=== PATIENT | female | born 1955 | race Caucasian/White ===

== ENCOUNTER 2023-10-08 15:43 | Inpatient (IN) | payer OTHER, SELFPAY ==
[2023-10-08] VITALS (9 sets, daily range): BP systolic 104–145; BP diastolic 78–88; PULSE 77–81; RESP 18; TEMP 36.6–36.7; O2SAT 96–98; BMI 21.3; BMI 26.9
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
--- NOTE | 2023-10-08 16:32 | ED.NURSE ---
Patient reports allergy to paper scrubs. She accepts paper pants and will wear her T-shirt without a bra for safety.
[2023-10-08] MEDS: ONDANSETRON ODT 4 MG TAB PO (16:38)
[2023-10-08 16:39] LABS: Basophils Absolute Auto 0.04 K/uL (0.00-0.30); Basophils Percent Auto 0.5 % (0.0-3.0); Eosinophils Absolute Auto 0.11 K/uL (0.00-0.50); Eosinophils Percent Auto 1.5 % (0.0-7.0); Hematocrit 48.6 % (33.0-51.0); Hemoglobin* 15.6 gm/dL (12.0-16.0); Immature Granulocytes Abs Auto 0.02 K/uL (0.00-0.30); Immature Granulocytes Pct Auto 0.3 %; Lymphocytes Percent Auto 14.3 % (20-44); Mean Corpuscular HGB Conc 32 gm/dL (32-36); Mean Corpuscular Hemoglobin 28 pg (26-34); Mean Corpuscular Volume 86 fL (80-100); Monocytes Percent Auto 11.1 % (0.0-11.0); Neutrophils Percent Auto 72.3 % (42.0-72.0); Platelet Count* 251 K/uL (140-440); RDW Coefficient of Variation % 12.3 % (11.5-15.5); Red Blood Count 5.65 m/uL (4.00-5.20); White Blood Count* 7.55 K/uL (4.50-11.00)
[2023-10-08 16:46] LABS: Slide Review Reflex No
[2023-10-08 16:54] LABS: Chloride* 103 mmol/L (96-114); Sodium* 139 mmol/L (135-149)
[2023-10-08 16:55] LABS: Potassium* 4.3 mmol/L (3.6-5.1)
[2023-10-08 16:57] LABS: Alanine Aminotransferase* 40 U/L (4-35); Alkaline Phosphatase* 65 U/L (40-150); Anion Gap 6 mEq/L (7-15); Aspartate Amino Transferase* 31 U/L (12-35); Bilirubin Total* 0.5 mg/dL (0.1-1.5); Blood Urea Nitrogen* 15 mg/dL (7-30); Carbon Dioxide* 30 mmol/L (20-32); Creatinine* 0.7 mg/dL (0.5-1.5); Est. Creatinine Clearance* 55.48; Estimated Glomerular Filt Rate 95 ml/min; Glucose* 101 mg/dL (60-115); Total Protein* 7.9 g/dL (6.0-8.3)
[2023-10-08 16:58] LABS: Calcium* 9.5 mg/dL (8.4-10.6)
[2023-10-08 16:59] LABS: Acetaminophen* < 10.0 ug/mL (10.0-30.0)
[2023-10-08 17:13] LABS: Ethanol* < 0.01 % (0.01-0.03); Salicylate* < 1.0 mg/dL (1.0-10)
[2023-10-08 17:21] LABS: PCR FLU A Negative PCR FLU A (Negative); PCR FLU B Negative PCR FLU B (Negative); PCR RSV Negative PCR RSV (Negative); SARS PCR* POSITIVE SARS-CoV-2 (Negative)
[2023-10-08] MEDS: 0.9 % SODIUM CHLORIDE 1000 ml 1,000 ML 500 ML IV (18:21)
[2023-10-08] MEDS: ONDANSETRON 2 MG/ML inj 4 MG IVP (18:22)
[2023-10-08] MEDS: KETOROLAC 15 MG/ML inj IVP (18:22)
--- NOTE | 2023-10-08 18:22 | ED.NURSE ---
Spoke with patient's sister to obtain background and explain plan for admission due to Covid. Patient's sister is in agreement, in very involved with her sister's care but is feeling overwhelmed over past several months due to increased needs in her sister and progression of depressive symptoms.
[2023-10-08] MEDS: SODIUM CHLORIDE 0.9 % (FLUSH) 10 ML SYRINGE 5 ML IVF (20:55)
[2023-10-08] MEDS: PANTOPRAZOLE SODIUM 40 MG INJ IVP (20:56)
[2023-10-08] MEDS: FAMOTIDINE 20 MG TABLET PO (20:56)
[2023-10-08] MEDS: PROCHLORPERAZINE 10 MG TABLET 5 MG PO (20:56)
[2023-10-08] MEDS: 0.9 % SODIUM CHLORIDE 1000 ml 1,000 ML 125 ML IV (20:58)
[2023-10-08] MEDS: clonazePAM 0.5 MG TABLET PO (21:16)
[2023-10-08] MEDS: TRAZODONE HCL 50 MG TABLET PO (21:16)
[2023-10-08] MEDS: MELATONIN 3 MG TABLET 6 MG PO (21:17)
[2023-10-08] MEDS: hydrOXYzine pamoate 25 MG CAPSULE 50 MG PO (21:17)
--- NOTE | 2023-10-08 21:29 | PM.IMHP1 ---
Hospitalist- H&P: HPI History of Present Illness Date Seen: 10/08/23 Chief complaint: Mental health Narrative: Danna Rojas is a 68 year old woman presents for assessment of his suicidal ideations in conjunction with nausea, diarrhea, decreased oral intake, with suspicions of possible opioid withdrawal. Had a video consultation with her [facility] psychiatrist yesterday about the same. Was advised to present to hospital with psychiatric support regarding the same yesterday. Presented to the [facility] Emergency Department in [facility] yesterday for assessment of the same. By the time she arrived there she indicated she was not having suicidal thoughts or ideations. Was more concerned about the possibility of having opioid withdrawals. Unable to take her oxycodone and keep it down. Was offered inpatient bed for assessment and treatment but she refused. Went back to her home with her sister. Has thoughts and ideations about drowning herself in the [place] peer does not have intention to do so but the thoughts keep coming back to her. Make statements during my interview along the lines of ?it is not worth it anymore.? Patient tells me she thinks that she tapered off her opioids to quickly. She is hoping to get reaction oxycodone to help with her opioid withdrawal symptoms. She thinks she becomes more anxious with opioid withdrawal symptoms and that is when she has thoughts of killing herself. States her appetite has been decreased. When she tries to eat or drink she says she has loose stools. Does have history of irritable bowel syndrome. Was in inpatient at [facility] unit from 08/23/2023 through 09/21/2023 with depression and suicidal ideations in the context of multiple medication adjustments. During that time she received a total of 5 treatments of ECT. Had significant cognitive decline afterward culminating in decision to recommend no future ECT treatments. Was on a 72 hour hold starting 09/16/23 due to unsafe discharge planning but did not require seclusion or restraints. During this to same hospitalization underwent significant reduction in oxycodone dosing. Had been on oxycodone 80 mg per day and at time of discharge was down to oxycodone 15 mg twice daily +10 mg once daily if needed. Prior to that hospitalization patient had filled a prescription of oxycodone 40 mg tabs, 120 tabs, on 08/16/23 and the bottle was empty by the time she was admitted to the hospital on 08/23/2023. Patient denies misuse of the medicine. Patient denies selling her medicine. Family suspect patient could have done both, sell the medicine and possibly overuse it. Reportedly her pain clinic was noted of this. Review of Systems Status of ROS: Reports: 10 or more systems reviewed and unremarkable except as noted in History and below Narrative: Main symptoms are nausea, postprandial loose stools. Acknowledges history of irritable bowel syndrome. States has been unable to keep her oxycodone down in particular. She thinks that not being able to take her oxycodone is causing her to have more symptoms. She believes these are opioid withdrawal symptoms. Denies fevers, rigors, diaphoresis. Denies dyspnea at rest, dyspnea with exertion, paroxysmal nocturnal dyspnea, orthopnea. Denies chest heaviness, pressure, tightness, or pain. Denies orthostasis. No recent trauma or injury. No focal motor neurologic deficits. Denies use of any non-prescription medications including tobacco, alcohol, methamphetamine, cocaine, etc.. [facility] Medical History (Updated 10/08/23 @ 22:33 by Mehul Medrano MD) Endometriosis ?N80.9 - Endometriosis, unspecified (ICD-10) Anxiety disorder ?F41.9 - Anxiety disorder, unspecified (ICD-10) Tobacco use disorder, moderate, in sustained remission ?F17.201 - Nicotine dependence, unspecified, in remission (ICD-10) Suicidal ideation ?R45.851 - Suicidal ideations (ICD-10) Methamphetamine use disorder, mild, in sustained remission ?F15.11 - Other stimulant abuse, in remission (ICD-10) Cannabis use disorder in remission ?F12.91 - Cannabis use, unspecified, in remission (ICD-10) Post traumatic stress disorder (PTSD) ?F43.10 - Post-traumatic stress disorder, unspecified (ICD-10) Chronic pain ?G89.29 - Other chronic pain (ICD-10) Opioid use disorder ?F11.90 - Opioid use, unspecified, uncomplicated (ICD-10) Bipolar 2 disorder ?F31.81 - Bipolar II disorder (ICD-10) Surgical History (Updated 10/08/23 @ 21:51 by Mehul Medrano MD) Status post cholecystectomy ?Z90.49 - Acquired absence of other specified parts of digestive tract (ICD-10) S/P MOISES-BSO (total abdominal hysterectomy and bilateral salpingo-oophorectomy) ?Z90.710 - Acquired absence of both cervix and uterus (ICD-10) ?Z90.722 - Acquired absence of ovaries, bilateral (ICD-10) ?Z90.79 - Acquired absence of other genital organ(s) (ICD-10) Family History Sister Bipolar 2 disorder Depression Anxiety Mother Anxiety Depression Sister Suicide Social History Narrative: . 4 children who live in the area. Lives alone in [place], [place]. On disability since 2013. What is your current living situation?: I presently have a place to live Problems where you live: no known problems Problems where you live details: NA In the past 12 months, utilities in danger of being shut off: no In past 12 months, lack of transportation kept you from medical appts, meetings, work, or getting things needed for daily living: no In the past 12 mos, have been you worried that your food would run out before you had money to buy more?: never true In the past 12 mos, the food you bought just didn't last and you didn't have money to buy more?: never true Highest level of school completed/degree received: some college, no degree Smoking Status: Former smoker How often do you have a drink containing alcohol: never AUDIT-C Alcohol total score: 0 Non-prescribed substance use: denies use Caffeine: No How often does anyone, including family, friends and others, physically hurt you: never How often does anyone, including family, friends and others, insult or talk down to you: never How often does anyone, including family, friends and others, threaten you with harm: never How often does anyone, including family, friends and others, scream or curse at you: never service: No Meds Home Medications and Allergies Home Medications ?Medication ?Instructions ?Recorded ?Confirmed ?Type aripiprazole 2 mg tablet mg PO 10/08/23 History clonazepam 0.5 mg tablet mg PO 10/08/23 History clonidine HCl 0.1 mg tablet mg PO DAILY 10/08/23 History dicyclomine 10 mg capsule 10 mg PO Q6H PRN 10/08/23 10/08/23 History divalproex 250 mg tablet,extended 250 mg PO DAILY 10/08/23 10/08/23 History release 24 hr divalproex 500 mg tablet,extended 500 mg PO DAILY 10/08/23 10/08/23 History release 24 hr oxycodone 20 mg tablet 20 mg PO QID PRN 10/08/23 10/08/23 History vortioxetine 10 mg tablet 10 mg PO DAILY 10/08/23 10/08/23 History (Trintellix) Allergies Allergy/AdvReac Type Severity Reaction Status Date / Time No Known Drug Allergies Allergy Verified 10/08/23 15:50 Exam Narrative: Exam Narrative: I examined patient in the emergency department. No acute distress. Vision and hearing are adequate. Cranial nerves 3-12 grossly normal. Alert and oriented to self, place, time, situation. Appears anxious. Linear thought processes. No delusions or hallucinations. Denies wishing to be or homicidal thoughts. Does acknowledge intrusive suicidal thoughts when she feels hopeless. Judgment seems poor with decreased ability to rationally discuss her condition, treatment options, future plans, future goals. Conjugate gaze. Poor dentition. Oropharynx with dry buccal mucosa. No lesions. No head neck lymphadenopathy. Neck is supple. Midline trachea. Lungs are clear to auscultation without wheezing, rhonchi, or rales. Heart tones with regular rhythm, normal S1-S2, without murmur, gallop, or rub. Abdomen with active bowel sounds, soft, nontender. Extremities without edema. Moves all 4 extremities. No tremor, asterixis, or ataxia. Independent in transfer, station, and gait. Skin intact. No rashes. No jaundice. No cyanosis. No petechiae. Const: Vital Signs, click to edit/add: Vital Signs - 24 hr 10/08/23 15:46 10/08/23 20:06 10/08/23 20:21 Temperature 98.0 F 98.0 F 98.0 F Pulse Rate [Left R adial] Pulse Rate [Right Pulse Oximeter] 81 79 79 Respiratory Rate 18 18 18 Blood Pressure [Ri ght Arm] Blood Pressure [Ri ght Upper Arm] 144/82 H 135/78 135/78 Pulse Oximetry 96 96 Oxygen Delivery Me thod Room Air Room Air 10/08/23 20:39 10/08/23 20:41 Temperature 97.8 F 97.8 F Pulse Rate [Left R adial] 77 77 Pulse Rate [Right Pulse Oximeter] Respiratory Rate 18 18 Blood Pressure [Ri ght Arm] 104/88 104/88 Blood Pressure [Ri ght Upper Arm] Pulse Oximetry 98 98 Oxygen Delivery Me thod Room Air Room Air Hospitalist - H&P: Result Labs Labs: Short CBC 10/08/23 Range/Units 16:34 WBC 7.55 (4.50-11.00) K/uL Hgb 15.6 (12.0-16.0) gm/dL Hct 48.6 (33.0-51.0) % Plt Count 251 (140-440) K/uL BMP 10/08/23 16:34 Sodium 139 Potassium 4.3 Chloride 103 Carbon Dioxide 30 BUN 15 Creatinine 0.7 Glucose 101 Calcium 9.5 Liver Function 10/08/23 Range/Units 16:34 Total Bilirubin 0.5 (0.1-1.5) mg/dL AST 31 (12-35) U/L ALT 40 H (4-35) U/L Alkaline Phosphatase 65 (40-150) U/L Albumin 5.0 (3.3-5.0) g/dL Assessment and Plan Assessment and plan (1) Suicidal ideation: Problem comment: - 1 attempt 6 years ago by hanging - h/o self cutting as a teenager - 10/08/2023 intermittent intrusive suicidal thoughts when feels hopeless - suicidal precautions. At this time she is potentially holdable if she tries to leave the hospital against medical advice. Other hospitals were contacted and will not accept her until she is medically stable, if she would still potentially require inpatient treatment. They indicate she needs to be able to tolerate oral intake, the COVID needs to be addressed, the diarrhea needs to be addressed. Status: Acute (2) Depression: Problem comment: - post-, 40 years old - ECT x 5 treatments between 08/25/23-09/15/23 at [place] - with some memory loss therefore no longer a candidate - ECT about 6 years ago in association with attempted suicide - restart same medications she was prescribed at time of discharge from [facility] 1 week ago Status: Acute (3) Bipolar 2 disorder: Status: Acute (4) Opioid use disorder: Problem comment: - Dr. Arcos, Pain management, [facility] - 10/08/2023 patient concerned about possible opioid withdrawal contributing to her loose stools and nausea - reinstitute schedule oxycodone at 15 mg p.o. b.i.d. in 10 mg q.d. p.r.n. as she was prescribed at time of discharge from [facility] at [facility] unit 1 week ago Status: Acute (5) Nausea & vomiting: Problem comment: - etiology not yet determined. Consider opioid withdrawal, COVID-19, peptic ulcer disease, Helicobacter pylori duodenitis, etc.. - treat with antiemetics as needed - PPI empirically - check Helicobacter pylori antigen - IV fluids, antiemetics Status: Acute (6) Diarrhea due to COVID-19: Problem comment: - remdesivir IV x3 days - check urine toxicology - reinstitute her opioids - check stool for C diff Status: Acute (7) COVID-19: Problem comment: - Dx 10/08/23 - Started Remdesivir IV x 3 days on 10/08/23 Status: Acute Plan 1. Admit to observation. 2. Treatment plan as specified above. 3. Consider transfer if appropriate and medically stable. 4. Patient agreeable to above stated plans and recommendations. Total Time Spent Total Time Spent: 70 minutes
[2023-10-08 21:48] LABS: Appearance Urine Clear (Clear); Bilirubin Urine Negative (Negative); Blood Urine Trace-intact (Negative); Color Urine Yellow (Yellow); Glucose Urine Negative (Negative); Ketones Urine 1+ (Negative); Leukocyte Esterase Urine 1+ (Negative); Nitrite Urine Negative (Negative); Protein Urine Negative (Negative); Urobilinogen Urine 0.2 (0.2-1.0); pH Urine 6.5 (5.0-8.5)
[2023-10-08 21:54] LABS: Amphetamine Screen Urine Negative (Negative); Bacteria Urine Few; Barbiturate Screen Urine Negative (Negative); Benzodiazepines Screen Urine Negative (Negative); Cannabinoid Screen Urine Negative (Negative); Cocaine Screen Urine Negative (Negative); Methadone Screen Urine Negative (Negative); Methamphetamines Screen Urine Negative (Negative); Opiate Screen Urine Negative (Negative); Oxycodone Screen Urine Negative (Negative); Phencyclidine Screen Urine Negative (Negative); RBC Urine 0-2 (0-2); Squamous Epithelial Cell Urine Many (None-Few); Tricyclic Antidepressant Urine Negative (Negative)
[2023-10-08] MEDS: OXYCODONE 5 MG TABLET 10 MG PO (22:15)
[2023-10-09] VITALS (10 sets, daily range): BP systolic 129–168; BP diastolic 72–93; PULSE 65–108; RESP 12–20; TEMP 36.8–37.8; O2SAT 95–98
--- NOTE | 2023-10-09 04:35 | PC.NURSE ---
Pt was very anxious upon admission. Once Meds were given she calmed down and went to sleep. Pt is Covid+. No cough. On RA. Afebrile. Pt up IND in room. States now that she is no longer Nauseated. No BM. VS unremarkable. Chronic pain to Neck rated 9/10. Suicide precautions in place. Pt RN 1:1 this night.
[2023-10-09 06:17] LABS: HCO3 VBG 30 mmol/L (21-28); Lactate* 1.1 mmol/L (0.5-1.9); PCO2 VBG 56 mmHG (40-50); PO2 VBG < 30.1 mmHG (25-47); pH VBG 7.335 (7.32-7.43)
[2023-10-09 06:34] LABS: Hematocrit 43.2 % (33.0-51.0); Hemoglobin* 13.6 gm/dL (12.0-16.0); Mean Corpuscular HGB Conc 32 gm/dL (32-36); Mean Corpuscular Hemoglobin 28 pg (26-34); Mean Corpuscular Volume 89 fL (80-100); Platelet Count* 199 K/uL (140-440); Red Blood Count 4.88 m/uL (4.00-5.20); White Blood Count* 4.52 K/uL (4.50-11.00)
[2023-10-09 06:38] LABS: Slide Review Reflex No
[2023-10-09 06:58] LABS: Albumin* 3.7 g/dL (3.3-5.0); Chloride* 108 mmol/L (96-114); Sodium* 141 mmol/L (135-149)
[2023-10-09 07:00] LABS: Anion Gap 5 mEq/L (7-15); Bilirubin Total* 0.2 mg/dL (0.1-1.5); Carbon Dioxide* 28 mmol/L (20-32); Creatinine* 0.7 mg/dL (0.5-1.5); Est. Creatinine Clearance* 39.75; Estimated Glomerular Filt Rate 95 ml/min
[2023-10-09 07:01] LABS: Alanine Aminotransferase* 28 U/L (4-35); Alkaline Phosphatase* 52 U/L (40-150); Aspartate Amino Transferase* 24 U/L (12-35); Blood Urea Nitrogen* 16 mg/dL (7-30); Glucose* 88 mg/dL (60-115); Phosphorus* 4.1 mg/dL (2.5-4.5)
[2023-10-09 07:02] LABS: Calcium* 8.4 mg/dL (8.4-10.6)
[2023-10-09 07:25] LABS: Thyroid Stimulating Hormone* 0.701 uIU/mL (0.270-4.20)
[2023-10-09] MEDS: DIVALPROEX SODIUM ER TAB 250 MG 500 MG PO (09:50)
[2023-10-09] MEDS: FAMOTIDINE 20 MG TABLET PO ×2 (09:50→20:18)
[2023-10-09] MEDS: SUCRALFATE 1 GM TABLET PO ×4 (09:51→20:19)
[2023-10-09] MEDS: OXYCODONE 5 MG TABLET 15 MG PO ×2 (09:51→20:17)
[2023-10-09] MEDS: SODIUM CHLORIDE 0.9 % (FLUSH) 10 ML SYRINGE 5 ML IVF ×2 (09:53→20:15)
--- NOTE | 2023-10-09 12:57 | P.IMPN_ITS ---
Progress Note: A&P Assessment and plan (1) COVID-19: Problem details: - Dx 10/08/23 - Started Remdesivir IV x 3 days on 10/08/23 Status: Acute (2) Diarrhea due to COVID-19: Problem details: - remdesivir IV x3 days - check urine toxicology - reinstitute her opioids - check stool for C diff->pending Status: Acute (3) Nausea & vomiting: Problem details: - etiology not yet determined. Consider opioid withdrawal, COVID-19, peptic ulcer disease, Helicobacter pylori duodenitis, etc.. - treat with antiemetics as needed - PPI empirically - check Helicobacter pylori antigen - IV fluids, antiemetics 10/08: Possible self induced vomiting per nursing reports?? Status: Acute (4) Opioid use disorder: Problem details: - Dr. Arcos, Pain management, [place] - 10/08/2023 patient concerned about possible opioid withdrawal contributing to her loose stools and nausea - reinstitute schedule oxycodone at 15 mg p.o. b.i.d. in 10 mg q.d. p.r.n. as she was prescribed at time of discharge from [facility] [place] unit 1 week ago Status: Acute (5) Bipolar 2 disorder: Status: Acute (6) Depression: Problem details: - post-, 40 years old - ECT x 5 treatments between 08/25/23-09/15/23 at [place] - with some memory loss therefore no longer a candidate - ECT about 6 years ago in association with attempted suicide - restart same medications she was prescribed at time of discharge from [facility] 1 week ago Status: Acute (7) Suicidal ideation: Problem details: - 1 attempt 6 years ago by hanging - h/o self cutting as a teenager - 10/08/2023 intermittent intrusive suicidal thoughts when feels hopeless - suicidal precautions. At this time she is potentially holdable if she tries to leave the hospital against medical advice. Other hospitals were contacted and will not accept her until she is medically stable, if she would still potentially require inpatient treatment. They indicate she needs to be able to tolerate oral intake, the COVID needs to be addressed, the diarrhea needs to be addressed. 10/08-Discussed with nursing staff continue sitter and suicide precautions; if patient attempts to leave AMA will need to fill out 72 hour medical hold Status: Acute Subjective Date Seen: 10/09/23 Interval history: patient has not had BM yet this morning no vomiting this AM per RN reports concern patient possibly may self inducing vomiting when asked about suicidal ideation the patient would not give a definitive response yes or no she states she just woke up and hasnt had enough time to think about potential self harm Exam Narrative: Exam Narrative: Gen: no acute distress HEENT: NCAT EOMI mmm Neck: Supple CV: RRR normal s1 s2 Lungs: CTAB Abd: Soft,nt, nd Neuro: Alert, oriented, CN grossly intact; nonfocal screening?exam Psych: poor insight MSK: age appropriate muscle mass Skin; Warm, dry no rash on face Const: Vital Signs, click to edit/add: Vital Signs - 24 hr 10/08/23 15:46 10/08/23 20:06 10/08/23 20:21 Temperature 98.0 F 98.0 F 98.0 F Pulse Rate [Left R adial] Pulse Rate [Right Pulse Oximeter] 81 79 79 Pulse Rate [orthos tatic lying] Pulse Rate [orthos tatic sitting Righ t] Pulse Rate [orthos tatic standing Rig ht Radial] Respiratory Rate 18 18 18 Blood Pressure [Ri ght Arm] Blood Pressure [Ri ght Upper Arm] 144/82 H 135/78 135/78 Blood Pressure [or thostatic lying] Blood Pressure [or thostatic sitting] Blood Pressure [or thostatic standing ] Pulse Oximetry 96 96 Oxygen Delivery Me thod Room Air Room Air Oxygen Flow Rate 10/08/23 20:39 10/08/23 20:41 10/08/23 21:30 Temperature 97.8 F 97.8 F Pulse Rate [Left R adial] 77 77 Pulse Rate [Right Pulse Oximeter] Pulse Rate [orthos tatic lying] Pulse Rate [orthos tatic sitting Righ t] Pulse Rate [orthos tatic standing Rig ht Radial] Respiratory Rate 18 18 18 Blood Pressure [Ri ght Arm] 104/88 104/88 Blood Pressure [Ri ght Upper Arm] Blood Pressure [or thostatic lying] Blood Pressure [or thostatic sitting] Blood Pressure [or thostatic standing ] Pulse Oximetry 98 98 98 Oxygen Delivery Me thod Room Air Room Air Room Air Oxygen Flow Rate 10/08/23 22:26 10/08/23 22:32 10/08/23 22:33 Temperature 98 F Pulse Rate [Left R adial] 77 77 Pulse Rate [Right Pulse Oximeter] Pulse Rate [orthos tatic lying] Pulse Rate [orthos tatic sitting Righ t] Pulse Rate [orthos tatic standing Rig ht Radial] Respiratory Rate 18 18 18 Blood Pressure [Ri ght Arm] 145/79 H Blood Pressure [Ri ght Upper Arm] Blood Pressure [or thostatic lying] Blood Pressure [or thostatic sitting] Blood Pressure [or thostatic standing ] Pulse Oximetry 96 96 Oxygen Delivery Me thod Room Air Room Air Oxygen Flow Rate 0 10/09/23 03:31 10/09/23 06:17 10/09/23 10:00 Temperature 98.4 F 99.7 F H Pulse Rate [Left R adial] 65 108 H Pulse Rate [Right Pulse Oximeter] Pulse Rate [orthos tatic lying] 74 Pulse Rate [orthos tatic sitting Righ t] 79 Pulse Rate [orthos tatic standing Rig ht Radial] 83 Respiratory Rate 16 14 Blood Pressure [Ri ght Arm] 129/72 133/86 Blood Pressure [Ri ght Upper Arm] Blood Pressure [or thostatic lying] 144/80 H Blood Pressure [or thostatic sitting] 159/93 H Blood Pressure [or thostatic standing ] 163/87 H Pulse Oximetry 95 95 Oxygen Delivery Me thod Room Air Room Air Oxygen Flow Rate 10/09/23 10:07 10/09/23 10:07 10/09/23 11:57 Temperature 98.3 F Pulse Rate [Left R adial] 108 H 91 Pulse Rate [Right Pulse Oximeter] Pulse Rate [orthos tatic lying] Pulse Rate [orthos tatic sitting Righ t] Pulse Rate [orthos tatic standing Rig ht Radial] Respiratory Rate 14 14 12 Blood Pressure [Ri ght Arm] 135/79 Blood Pressure [Ri ght Upper Arm] Blood Pressure [or thostatic lying] Blood Pressure [or thostatic sitting] Blood Pressure [or thostatic standing ] Pulse Oximetry 95 98 Oxygen Delivery Me thod Room Air Room Air Oxygen Flow Rate Labs Labs: Laboratory Results - last 24 hr 10/08/23 10/08/23 10/08/23 16:21 16:34 21:35 WBC 7.55 RBC 5.65 H Hgb 15.6 Hct 48.6 MCV 86 MCH 28 MCHC 32 RDW Coeff of Adriano 12.3 Plt Count 251 Neut % (Auto) 72.3 H Lymph % (Auto) 14.3 L [place] % (Auto) 11.1 H Eos % (Auto) 1.5 Baso % (Auto) 0.5 Neut # (Auto) 5.50 Lymph # (Auto) 1.10 [place] # (Auto) 0.80 Eos # (Auto) 0.11 Baso # (Auto) 0.04 Abs Immat Gran (auto) 0.02 Imm/Tot Granulo (auto) 0.3 VBG pH VBG pCO2 VBG pO2 VBG HCO3 Sodium 139 Potassium 4.3 Chloride 103 Carbon Dioxide 30 Anion Gap 6 L BUN 15 Creatinine 0.7 Estimated Creat Clear 55.48 Estimated GFR 95 Glucose 101 Lactate Calcium 9.5 Phosphorus Magnesium Total Bilirubin 0.5 AST 31 ALT 40 H Alkaline Phosphatase 65 Total Protein 7.9 Albumin 5.0 TSH Urine Color Yellow Urine Appearance Clear Urine pH 6.5 Ur Specific Snyder 1.020 Urine Protein Negative Urine Glucose (UA) Negative Urine Ketones 1+ A Urine Blood Trace-intact A Urine Nitrite Negative Urine Bilirubin Negative Urine Urobilinogen 0.2 Ur Leukocyte Esterase 1+ A Urine RBC 0-2 Urine WBC 10-25 A Ur Squamous Epith Cells Many A Urine Bacteria Few A Salicylates < 1.0 L Urine Opiates Screen Negative Ur Oxycodone Screen Negative Urine Methadone Screen Negative Acetaminophen < 10.0 L Ur Barbiturates Screen Negative U Tricyclic Antidepress Negative Ur Phencyclidine Scrn Negative Ur Amphetamines Screen Negative U Methamphetamines Scrn Negative U Benzodiazepines Scrn Negative Urine Cocaine Screen Negative U Marijuana (THC) Screen Negative Ur Drug Screen Comment See Note Ethyl Alcohol < 0.01 L SARS-CoV-2 (PCR) POSITIVE SARS-CoV-2 A Influenza Type A (PCR) Negative PCR FLU A Influenza Type B (PCR) Negative PCR FLU B RSV (PCR) Negative PCR RSV 10/09/23 06:05 WBC 4.52 RBC 4.88 Hgb 13.6 Hct 43.2 MCV 89 MCH 28 MCHC 32 RDW Coeff of Adriano Plt Count 199 Neut % (Auto) Lymph % (Auto) [place] % (Auto) Eos % (Auto) Baso % (Auto) Neut # (Auto) Lymph # (Auto) [place] # (Auto) Eos # (Auto) Baso # (Auto) Abs Immat Gran (auto) Imm/Tot Granulo (auto) VBG pH 7.335 VBG pCO2 56 H VBG pO2 < 30.1 VBG HCO3 30 H Sodium 141 Potassium 4.0 Chloride 108 Carbon Dioxide 28 Anion Gap 5 L BUN 16 Creatinine 0.7 Estimated Creat Clear 39.75 Estimated GFR 95 Glucose 88 Lactate 1.1 Calcium 8.4 Phosphorus 4.1 Magnesium 2.0 Total Bilirubin 0.2 AST 24 ALT 28 Alkaline Phosphatase 52 Total Protein 6.0 Albumin 3.7 TSH 0.701 Urine Color Urine Appearance Urine pH Ur Specific Snyder Urine Protein Urine Glucose (UA) Urine Ketones Urine Blood Urine Nitrite Urine Bilirubin Urine Urobilinogen Ur Leukocyte Esterase Urine RBC Urine WBC Ur Squamous Epith Cells Urine Bacteria Salicylates Urine Opiates Screen Ur Oxycodone Screen Urine Methadone Screen Acetaminophen Ur Barbiturates Screen U Tricyclic Antidepress Ur Phencyclidine Scrn Ur Amphetamines Screen U Methamphetamines Scrn U Benzodiazepines Scrn Urine Cocaine Screen U Marijuana (THC) Screen Ur Drug Screen Comment Ethyl Alcohol SARS-CoV-2 (PCR) Influenza Type A (PCR) Influenza Type B (PCR) RSV (PCR)
--- NOTE | 2023-10-09 18:28 | PC.NURSE ---
End of Shift: Patient pleasant and cooperative. Patient vitally stable, lungs clear, BS WNL, IV SL and intact. Patient independent in room. Patient rates back pain at most 8/10, only scheduled pain meds given, tylenol offered but patient reported she is allergic to tylenol. Patient urinating well. Patient has not vomited or had a BM this shift. Patient tolerating regular diet but does not have much of an appetite. Patient does report she is afraid to vomit therefore she is taking in food slow. Patient denies thoughts of harming herself but patient did express she does feel like she does not want to be around anymore. Patient became emotional and reported she is just sick and tired. Patient has been napping on and off today.
[2023-10-09] MEDS: MELATONIN 3 MG TABLET 6 MG PO (20:18)
[2023-10-09] MEDS: clonazePAM 0.5 MG TABLET PO (20:18)
[2023-10-09] MEDS: TRAZODONE HCL 50 MG TABLET PO (20:19)
[2023-10-10 02:55] VITALS: BP 152/86; PULSE 81; RESP 18; TEMP 37.5; O2SAT 92
--- NOTE | 2023-10-10 03:44 | PC.NURSE ---
Pt anxiety is much reduced. Up IND in room. Home med left for Pharm. VS unremarkable. Covid +. On room air lungs sounds clear.
[2023-10-10 06:45] LABS: Albumin* 3.9 g/dL (3.3-5.0)
[2023-10-10 06:46] LABS: Chloride* 107 mmol/L (96-114); Potassium* 3.6 mmol/L (3.6-5.1); Sodium* 139 mmol/L (135-149)
[2023-10-10 06:48] LABS: Anion Gap 5 mEq/L (7-15); Aspartate Amino Transferase* 21 U/L (12-35); Bilirubin Total* 0.2 mg/dL (0.1-1.5); Carbon Dioxide* 27 mmol/L (20-32); Creatinine* 0.6 mg/dL (0.5-1.5); Est. Creatinine Clearance* 39.75; Estimated Glomerular Filt Rate 99 ml/min
[2023-10-10 06:49] LABS: Alanine Aminotransferase* 25 U/L (4-35); Alkaline Phosphatase* 58 U/L (40-150); Blood Urea Nitrogen* 9 mg/dL (7-30); Calcium* 8.7 mg/dL (8.4-10.6); Glucose* 103 mg/dL (60-115); Total Protein* 6.3 g/dL (6.0-8.3)
[2023-10-10] MEDS: SUCRALFATE 1 GM TABLET PO ×3 (09:07→20:15)
[2023-10-10 09:15] VITALS: BP 146/78; PULSE 81; PULSE 82; RESP 16; TEMP 37; O2SAT 94
[2023-10-10] MEDS: OXYCODONE 5 MG TABLET 15 MG PO ×2 (09:51→20:15)
[2023-10-10] MEDS: DIVALPROEX SODIUM ER TAB 250 MG 500 MG PO (09:51)
[2023-10-10] MEDS: FAMOTIDINE 20 MG TABLET PO ×2 (09:51→20:15)
[2023-10-10] MEDS: SODIUM CHLORIDE 0.9 % (FLUSH) 10 ML SYRINGE 5 ML IVF ×2 (10:00→20:20)
--- NOTE | 2023-10-10 10:34 | PC.SOCIAL ---
Confirmed [facility] will not accept pt. since she is COVID positive.
--- NOTE | 2023-10-10 12:03 | PC.SOCIAL ---
Contacted [facility] for inpatient mental health and they will not accept a pt. that has COVID until they are 5 days past their positive test results.
--- NOTE | 2023-10-10 12:59 | P.IMPN_ITS ---
Progress Note: A&P Assessment and plan (1) COVID-19: Problem details: - Dx 10/08/23 - Started Remdesivir IV x 3 days on 10/08/23 Temp at highest 100.1?. No supplemental oxygen needs Status: Acute (2) Diarrhea due to COVID-19: Problem details: - remdesivir IV x3 days - urine toxicology-negative - reinstituted her opioids - check stool for C diff->pending. No further stools, likely not C diff Status: Acute (3) Nausea & vomiting: Problem details: - etiology undetermined. Consider opioid withdrawal, COVID-19, peptic ulcer disease, Helicobacter pylori duodenitis, etc.. - treat with antiemetics as needed - PPI empirically - check Helicobacter pylori antigen - not yet collected 10/08: Possible self induced vomiting per nursing reports?? 10/09: reports no nausea, no further vomiting. Tolerating orals. Opioids have been rescheduled Status: Acute (4) Opioid use disorder: Problem details: - Dr. Arcos, Pain management, [facility] - 10/08/2023 patient concerned about possible opioid withdrawal contributing to her loose stools and nausea - reinstitute schedule oxycodone at 15 mg p.o. b.i.d. in 10 mg q.d. p.r.n. as she was prescribed at time of discharge from [facility] at [facility] 09/21/2023 - ED visit [facility] on 10/07/23, 1 day prior to admission to our hospital, assessed by Psychiatry in ED, note reviewed. Suicidal ideation at that time had resolved, from acute, back to chronic. Per record, When the patient was asked whether she was willing to be admitted to the CRU for detox from opioids, she states that she has no interest in fully detoxing from opioids. The patient was offered the option of being admitted to [address] [place] [address] with a referral to be placed for management at the pain rehabilitation center at [facility], although she declined this option as she is not willing to participate in an intensive outpatient program in [place] as she does not feel safe transport in between [place] in [place]. As a result, the patient elected to discharge home with plans to follow-up with her opioid prescriber about ongoing withdrawal symptoms, and to request an appointment with the primary care physician to discuss goals of opioid taper as well as management of withdrawal symptoms. Status: Acute (5) Bipolar 2 disorder: Problem details: - continue home medications. Medications from 10/06 ED Psychiatry vist reviewed by pharmacy Status: Acute (6) Depression: Problem details: - post-, 40 years old - ECT x 5 treatments between 08/25/23-09/15/23 at [place] - with some memory loss therefore no longer a candidate - ECT about 6 years ago in association with attempted suicide - restart same medications she was prescribed at time of discharge from [facility] 09/21/23 Status: Acute (7) Suicidal ideation: Problem details: - 1 attempt 6 years ago by hanging - h/o self cutting as a teenager - 10/08/2023 intermittent intrusive suicidal thoughts when feels hopeless, in setting of chronic SI - suicidal precautions. At this time she is potentially holdable if she tries to leave the hospital against medical advice. Other hospitals were contacted and will not accept her until she is medically stable, if she would still potentially require inpatient treatment. They indicate she needs to be able to tolerate oral intake, the COVID needs to be addressed, the diarrhea needs to be addressed. - hospitalized at [facility] 08/23/2023 to 09/21/23. Underwent ECT. As above, assessed by Psychiatry in [facility] ED on 10/07/23, just over 24 hours prior to admission here, declined outpatient detox at the CRU or inpatient admission to [address] - Discussed with nursing staff continue sitter and suicide precautions; if patient attempts to leave AMA will need to fill out 72 hour medical hold 10/09: services engineer to assess for suicidal ideation, need for placement in an inpatient psychiatric facility. If deemed necessary, will need to complete quarantine prior to transfer. Status: Acute Plan Formal evaluation for suicidal ideation. If deemed safe to discharge to home, likely tomorrow. If inpatient psychiatric placement necessary, will need to complete quarantine. Time Spent With Patient Total time spent: Total time spent caring for the patient today was 45 minutes. This includes time spent for the visit reviewing the chart, time spent during the visit, time spent after the visit and documentation and planning in coordination of care. Subjective Date Seen: 10/10/23 Interval history: Patient is seen with nurse at bedside. Is lying in bed in a position. Has been less than cooperative with being out of bed, despite being encouraged to be up to the chair or ambulating in her room. Complains of ongoing global headache, no worse than usual. Nausea has resolved. No further vomiting. No further diarrhea, no recent bowel movement. Temp 100.1? last night around 8:00 p.m.. Continues to feel fatigued. Minimal appetite but tolerating orals. When asked if she is actively having suicidal ideation, patient is evasive, telling me she is unsure, is too tired. Admits to low level chronic daily id eation. When asked if she has a plan she tells me of course she does. When asked if she would act on this plan, she tells me she is too tired to do so in would be unable to walk. Reviewed patient's ED assessment at [facility] with psychiatry on 10/07/2023, just 24 hours prior to admission here. At that time was offered outpatient CRU detox or inpatient admission to [address] Declined. Documented appropriate to discharge from ED. Not holdable. Exam Narrative: Exam Narrative: PHYSICAL EXAM General: Lying in bed, poorly engaged, otherwise NAD HEENT: Normocephalic, atraumatic, sclera white, EOMI, oral mucosa moist Cardiovascular: RRR, S1S2. No pitting edema Pulmonary: CTA bilaterally without rhonchi, rales, expiratory wheezes. No dyspnea on room air Neurological: Alert, flat affect, evasive Extremities: No gross joint deformity or swelling. AROMI. Neurovascularly intact Skin: Warm, dry. Const: Vital Signs, click to edit/add: Vital Signs - 24 hr 10/09/23 15:28 10/09/23 15:28 10/09/23 15:28 Temperature 98.8 F Pulse Rate [Left R adial] 79 79 Respiratory Rate 20 20 20 Blood Pressure [Ri ght Arm] 168/77 H Pulse Oximetry 95 95 Oxygen Delivery Me thod Room Air Room Air Oxygen Flow Rate 0 10/09/23 20:28 10/09/23 21:55 10/09/23 21:56 Temperature 100.1 F H 100 F H Pulse Rate [Left R adial] 79 79 79 Respiratory Rate 20 20 20 Blood Pressure [Ri ght Arm] 151/82 H 148/82 H Pulse Oximetry 95 95 Oxygen Delivery Me thod Room Air Room Air Oxygen Flow Rate 0 0 10/09/23 21:57 10/10/23 02:55 10/10/23 09:15 Temperature 99.5 F Pulse Rate [Left R adial] 81 81 Respiratory Rate 20 18 16 Blood Pressure [Ri ght Arm] 152/86 H Pulse Oximetry 95 92 Oxygen Delivery Me thod Room Air Room Air Oxygen Flow Rate 0 10/10/23 09:15 10/10/23 09:15 Temperature 98.6 F Pulse Rate [Left R adial] 82 Respiratory Rate 16 16 Blood Pressure [Ri ght Arm] 146/78 H Pulse Oximetry 94 94 Oxygen Delivery Me thod Room Air Room Air Oxygen Flow Rate Labs Labs: Laboratory Results - last 24 hr 10/10/23 06:15 Sodium 139 Potassium 3.6 Chloride 107 Carbon Dioxide 27 Anion Gap 5 L BUN 9 Creatinine 0.6 Estimated Creat Clear 39.75 Estimated GFR 99 Glucose 103 Calcium 8.7 Total Bilirubin 0.2 AST 21 ALT 25 Alkaline Phosphatase 58 Total Protein 6.3 Albumin 3.9
[2023-10-10 15:00] VITALS: BP 147/85; PULSE 82; RESP 16; RESP 18; TEMP 36.9; O2SAT 95
[2023-10-10 19:00] VITALS: BP 169/89; PULSE 75; RESP 18; TEMP 36.9; O2SAT 97
--- NOTE | 2023-10-10 19:30 | PC.NURSE ---
Nursing Care Hours: [id number] Pt this shift calm and semi cooperative. Encouraged 7 different times to sit up in the chair. Discussed the benefits on physical health and lungs, as well as mental health. Pt verbally agrees but would remain in bed. Pt would sit up at edge of bed or sit in high fowlers. IS 1000ml. No cough noted, VSS, afebrile. Denies nausea or loose stools. Tolerating regular diet. Rhonchi in R lung noted. Pt states feeling of depression and states I don't see the point anymore. Income Tax Administrator discussed the difficulty in dealing with depression while also dealing with covid as it can exacerbate depression symptoms like fatigue and head fog. Room continued to be monitored via camera.
[2023-10-10] MEDS: PROCHLORPERAZINE 10 MG TABLET 5 MG PO (20:06)
[2023-10-10] MEDS: TRAZODONE HCL 50 MG TABLET PO (20:16)
[2023-10-10 23:00] VITALS: BP 172/93; PULSE 72; RESP 18; TEMP 36.6; O2SAT 91
[2023-10-11 02:41] VITALS: BP 148/78; PULSE 74; RESP 18; TEMP 36.6; O2SAT 94
--- NOTE | 2023-10-11 05:19 | PC.NURSE ---
Shift note: Pt is independent in room, doing well on room air with O2>90%. No cough and fever recorded tonight. Suicide precaution maintained in room.Pt slept late around 0230.
[2023-10-11 06:41] LABS: Hematocrit 41.2 % (33.0-51.0); Hemoglobin* 13.5 gm/dL (12.0-16.0); Mean Corpuscular HGB Conc 33 gm/dL (32-36); Mean Corpuscular Hemoglobin 28 pg (26-34); Mean Corpuscular Volume 85 fL (80-100); Platelet Count* 188 K/uL (140-440); Red Blood Count 4.83 m/uL (4.00-5.20); White Blood Count* 4.93 K/uL (4.50-11.00)
[2023-10-11 06:42] LABS: Slide Review Reflex No
[2023-10-11 06:53] LABS: Chloride* 104 mmol/L (96-114); Sodium* 139 mmol/L (135-149)
[2023-10-11 06:54] LABS: Potassium* 3.5 mmol/L (3.6-5.1)
[2023-10-11 06:56] LABS: Creatinine* 0.6 mg/dL (0.5-1.5); Est. Creatinine Clearance* 39.75; Estimated Glomerular Filt Rate 99 ml/min
[2023-10-11 06:57] LABS: Anion Gap 4 mEq/L (7-15); Blood Urea Nitrogen* 13 mg/dL (7-30); Calcium* 8.5 mg/dL (8.4-10.6); Carbon Dioxide* 31 mmol/L (20-32); Glucose* 91 mg/dL (60-115)
[2023-10-11 09:00] VITALS: BP 137/77; PULSE 77; RESP 18; TEMP 36.4; O2SAT 94
[2023-10-11] MEDS: SUCRALFATE 1 GM TABLET PO (09:00)
[2023-10-11] MEDS: OXYCODONE 5 MG TABLET 15 MG PO (10:16)
[2023-10-11] MEDS: DIVALPROEX SODIUM ER TAB 250 MG 500 MG PO (10:16)
[2023-10-11] MEDS: FAMOTIDINE 20 MG TABLET PO (10:16)
[2023-10-11] MEDS: SODIUM CHLORIDE 0.9 % (FLUSH) 10 ML SYRINGE 5 ML IVF (10:17)
[2023-10-11 11:00] VITALS: BP 158/88; PULSE 88; RESP 20; TEMP 36.7; O2SAT 97
--- NOTE | 2023-10-11 11:45 | PM.IMPN1 ---
Progress Note: A&P Assessment and plan (1) Suicidal ideation: Problem details: - 1 attempt 6 years ago by hanging - h/o self cutting as a teenager - 10/08/2023 intermittent intrusive suicidal thoughts when feels hopeless, in setting of chronic SI - suicidal precautions. At this time she is potentially holdable if she tries to leave the hospital against medical advice. Other hospitals were contacted and will not accept her until she is medically stable, if she would still potentially require inpatient treatment. They indicate she needs to be able to tolerate oral intake, the COVID needs to be addressed, the diarrhea needs to be addressed. - hospitalized at [facility] 08/23/2023 to 09/21/23. Underwent ECT. As above, assessed by Psychiatry in [facility] ED on 10/07/23, just over 24 hours prior to admission here, declined outpatient detox at the CRU or inpatient admission to [address] - Discussed with nursing staff continue sitter and suicide precautions; if patient attempts to leave AMA will need to fill out 72 hour medical hold 10/09: information services tech to assess for suicidal ideation, need for placement in an inpatient psychiatric facility. If deemed necessary, will need to complete quarantine prior to transfer 10/10: verbalizes active suicidal ideation with a plan, unsafe to return home for concern of acting on plan. Concerned not yet on correct medications. Suicidal precautions, 1:1. information services tech seeking placement Status: Acute (2) Bipolar 2 disorder: Problem details: -continued on same medications she was prescribed at time of discharge from [facility] 09/21/23, reviewed by pharmacy Status: Chronic (3) Depression: Problem details: - post-, 40 years old - ECT x 5 treatments between 08/25/23-09/15/23 at [place] - with some memory loss therefore no longer a candidate - ECT about 6 years ago in association with attempted suicide - continued on same medications she was prescribed at time of discharge from [facility] 09/21/23, reviewed by pharmacy Status: Chronic (4) Personality disorder: Problem details: - noted on EMR Status: Chronic (5) COVID-19: Problem details: - Dx 10/08/23 - Completed 3 day course Remdesivir (10/07-10/09) Afebrile >24 hours. No supplemental oxygen needs Status: Acute (6) Diarrhea due to COVID-19: Problem details: RESOLVED - remdesivir IV x3 days - urine toxicology-negative - reinstituted her opioids - check stool for C diff. No stools since admission, likely not C diff. Status: Resolved (7) Nausea & vomiting: Problem details: RESOLVED - etiology undetermined. Consider opioid withdrawal, COVID-19, peptic ulcer disease, Helicobacter pylori duodenitis, etc.. - treat with antiemetics as needed - PPI empirically - check Helicobacter pylori antigen - not collected as no further stools 10/08: Possible self induced vomiting per nursing reports?? 10/09: reports no nausea, no further vomiting. Tolerating orals. Opioids have been rescheduled Status: Resolved (8) Opioid use disorder: Problem details: - Dr. Arcos, Pain management, [facility] - 10/08/2023 patient concerned about possible opioid withdrawal contributing to her loose stools and nausea - reinstitute schedule oxycodone at 15 mg p.o. b.i.d. in 10 mg q.d. p.r.n. as she was prescribed at time of discharge from [facility] at [facility] 09/21/2023 - ED visit [facility] on 10/07/23, 1 day prior to admission to our hospital, assessed by Psychiatry in ED, note reviewed. Suicidal ideation at that time had resolved, from acute, back to chronic. Per record, When the patient was asked whether she was willing to be admitted to the CRU for detox from opioids, she states that she has no interest in fully detoxing from opioids. The patient was offered the option of being admitted to [address] [place] [address] with a referral to be placed for management at the pain rehabilitation center at [facility], although she declined this option as she is not willing to participate in an intensive outpatient program in [place] as she does not feel safe transport in between [place] in [place]. As a result, the patient elected to discharge home with plans to follow-up with her opioid prescriber about ongoing withdrawal symptoms, and to request an appointment with the primary care physician to discuss goals of opioid taper as well as management of withdrawal symptoms. 10/10: Patient verbalizes she is not interested in an opioid detox program. Wants to focus on her mental health, current suicidality now. Wants to continue on current pain management regimen. Has an outpatient appointment at the pain clinic the end of September. Status: Chronic Plan Suicidal precautions, 1:1, social media intern seeking placement. 10/10: Documentation being sent to [facility] Time Spent With Patient Total time spent: Total time spent caring for the patient today was 75 minutes. This includes time spent for the visit reviewing the chart, time spent during the visit, time spent after the visit and documentation and planning in coordination of care. Subjective Date Seen: 10/11/23 Interval history: Patient is seen lying in bed in the position again this morning, after 9:00 a.m.. Nursing staff reports she did not fall asleep until after 3:00 a.m.. Had been lying or sitting in bed, most of the day yesterday, noted to be on her cellphone most of the time, despite being encouraged to be out of bed during waking hours. This morning she tells me she is tired. Chronic pain unchanged. Has remained afebrile > 24 hours. Vitally stable. Has been calm and cooperative, other than non compliant with encouragement to ambulate in room and up in a chair. Tells me she should be lying in bed if she has COVID. On reassessment this morning, as she was evasive with answering yesterday, she tells me she remains actively suicidal. Tells me she does not feel safe returning home as she is not confident she would not act on her plan. Tells me she was released too early, 09/21/23, from her most recent inpatient stay at [facility]. Feels she is not on the right medications yet. Denies chronic daily low level suicidal ideation and that her current suicidal ideation is not well managed. She is not interested in an opioid detox program for her chronic pain. She is followed by an outpatient pain management program and has an appointment the end of September. Exam Narrative: Exam Narrative: PHYSICAL EXAM General: Lying in bed, NAD HEENT: Normocephalic, atraumatic, sclera white, EOMI, oral mucosa moist Cardiovascular: RRR, S1S2. No pitting edema Pulmonary: CTA bilaterally without rhonchi, rales, expiratory wheezes. No dyspnea on room air Neurological: Alert, flat affect, less evasive today, more argumentative Extremities: No gross joint deformity or swelling. AROMI. Neurovascularly intact Skin: Warm, dry. Const: Vital Signs, click to edit/add: Vital Signs - 24 hr 10/10/23 15:00 10/10/23 15:00 10/10/23 15:00 Temperature 98.5 F Pulse Rate [Left R adial] 82 82 Respiratory Rate 18 16 18 Blood Pressure [Le ft Arm] 147/85 H Pulse Oximetry 95 95 Oxygen Delivery Me thod Room Air Room Air 10/10/23 19:00 10/10/23 23:00 10/10/23 23:00 Temperature 98.4 F Pulse Rate [Left R adial] 75 72 Respiratory Rate 18 18 18 Blood Pressure [Le ft Arm] 169/89 H Pulse Oximetry 97 91 Oxygen Delivery In thod Room Air Room Air 10/10/23 23:00 10/11/23 02:41 10/11/23 09:00 Temperature 98 F 97.9 F Pulse Rate [Left R adial] 72 74 77 Respiratory Rate 18 18 18 Blood Pressure [Le ft Arm] 172/93 H 148/78 H Pulse Oximetry 91 94 [facility] 10/11/23 09:00 10/11/23 09:00 Temperature 97.6 F Pulse Rate [Left R adial] 77 Respiratory Rate 18 18 Blood Pressure [Le ft Arm] 137/77 Pulse Oximetry 94 94 Oxygen Delivery In thod Room Air Room Air Labs Labs: Laboratory Results - last 24 hr 10/11/23 06:10 WBC 4.93 RBC 4.83 Hgb 13.5 Hct 41.2 MCV 85 MCH 28 MCHC 33 Plt Count 188 Sodium 139 Potassium 3.5 L Chloride 104 Carbon Dioxide 31 Anion Gap 4 L BUN 13 Creatinine 0.6 Estimated Creat Clear 39.75 Estimated GFR 99 Glucose 91 Calcium 8.5
--- NOTE | 2023-10-11 11:47 | PC.SOCIAL ---
Discharge planning: Per MD order for in-pt mental health placement, called the following mental health facilities regarding their current policy on admitting patients who are COVID positive: 1. [facility] - will consider pt for admit 10 days after COVID diagnosis. 2. [facility] - will consider pt for admit 5 days after COVID diagnosis. 3. [facility] - will consider pt for admit 10 days after COVID diagnosis. 4. [facility] ([facility]) - [facility] is able to evaluate COVID positive patients for admission to their in-pt mental health unit. Provided initial information by phone to Maureen in intake and faxed requested information to [facility] at [phone] for evaluation for admission. dry drug worker to follow up as needed.
--- NOTE | 2023-10-11 13:28 | P.DS_ITS ---
DS: Providers Provider Date Seen: 10/11/23 Date of admission: 10/10/23 11:42 Primary care physician: Not a Local Provider Admitting Clinician: Mehul Medrano MD Consults: 10/08/23 19:50 Consult to Nitroglycerin Separator Operator [CONS] Routine Comment: Reason for Consult:: Discharge Planning Needs Attending Physician on discharge: Sigrid Gomez, [facility], [facility] [place] Hospitalist Date of Discharge: 10/11/23 DS: Diagnosis Discharge Diagnosis (1) Suicidal ideation: Status: Acute Problem details: - 1 attempt 6 years ago by hanging - h/o self cutting as a teenager - 10/08/2023 intermittent intrusive suicidal thoughts when feels hopeless, in setting of chronic SI - suicidal precautions. At this time she is potentially holdable if she tries to leave the hospital against medical advice. Other hospitals were contacted and will not accept her until she is medically stable, if she would still po tentially require inpatient treatment. They indicate she needs to be able to tolerate oral intake, the COVID needs to be addressed, the diarrhea needs to be addressed. - hospitalized at [facility] 08/23/2023 to 09/21/23. Underwent ECT. As above, assessed by Psychiatry in [facility] ED on 10/07/23, just over 24 hours prior to admission here, declined outpatient detox at the [facility] or inpatient admission to [address] 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 If deemed necessary, will need to complete quarantine prior to transfer 10/10: verbalizes active suicidal ideation with a plan, unsafe to return home for concern of acting on plan. Concerned not yet on correct medications. Suicidal precautions, 1:1. Patient is accepted at [facility], Inpatient Psychiatry. Accepting, Dr. Arellano (2) Bipolar 2 disorder: Status: Chronic Problem details: -continued on same medications she was prescribed at time of discharge from [facility] 09/21/23, reviewed by pharmacy (3) Depression: Status: Chronic Problem details: - post-, 40 years old - ECT x 5 treatments between 08/25/23-09/15/23 at [place] - with some memory loss therefore no longer a candidate - ECT about 6 years ago in association with attempted suicide - continued on same medications she was prescribed at time of discharge from [facility] 09/21/23, reviewed by pharmacy (4) Personality disorder: Status: Chronic Problem details: - noted on EMR (5) COVID-19: Status: Acute Problem details: - Dx 10/08/23 - Completed 3 day course Remdesivir (10/07-10/09) Afebrile >24 hours. No supplemental oxygen needs (6) Diarrhea due to COVID-19: Status: Resolved Problem details: RESOLVED - remdesivir IV x3 days - urine toxicology-negative - reinstituted her opioids - check stool for C diff. No stools since admission, likely not C diff. (7) Nausea & vomiting: Status: Resolved Problem details: RESOLVED - etiology undetermined. Consider opioid withdrawal, COVID-19, peptic ulcer disease, Helicobacter pylori duodenitis, etc.. - treat with antiemetics as needed - PPI empirically - check Helicobacter pylori antigen - not collected as no further stools 10/08: Possible self induced vomiting per nursing reports?? 10/09: reports no nausea, no further vomiting. Tolerating orals. Opioids have been rescheduled (8) Opioid use disorder: Status: Chronic Problem details: - Dr. Arcos, Pain management, [facility] - 10/08/2023 patient concerned about possible opioid withdrawal contributing to her loose stools and nausea - reinstitute schedule oxycodone at 15 mg p.o. b.i.d. in 10 mg q.d. p.r.n. as she was prescribed at time of discharge from [facility] at [facility] unit 09/21/2023 - ED visit [facility] on 10/07/23, 1 day prior to admission to our hospital, assessed by Psychiatry in ED, note reviewed. Suicidal ideation at that time had resolved, from acute, back to chronic. Per record, When the patient was asked whether she was willing to be admitted to the [facility] for detox from opioids, she states that she has no interest in fully detoxing from opioids. The patient was offered the option of being admitted to [address] [place] [address] with a referral to be placed for management at the pain rehabilitation center at [facility], although she declined this option as she is not willing to participate in an intensive outpatient program in [place] as she does not feel safe transport in between [facility]. As a result, the patient elected to discharge home with plans to follow-up with her opioid prescriber about ongoing withdrawal symptoms, and to request an appointment with the primary care physician to discuss goals of opioid taper as well as management of withdrawal symptoms. 10/10: Patient verbalizes she is not interested in an opioid detox program. Wants to focus on her mental health, current suicidality now. Wants to continue on current pain management regimen. Has an outpatient appointment at the pain clinic the end of September. DS: Summary Hospital Course Hospital Course: [age] year old female past medical history significant for depression, anxiety, PTSD, personality disorder, chronic pain was admitted to the medical floor for management COVID with suicidal ideation. Course of care and details as noted above. Remainder of chronic medical comorbidities were monitored and managed with home medications. Status at Discharge Overall status at discharge: patient is progressing back to baseline Time Spent with Patient Time attestation: Total time spent providing and/or coordinating discharge services: Time spent: Greater than 30 minutes Exam Narrative: Exam Narrative: PHYSICAL EXAM General: Calm, cooperative, NAD Cardiovascular: RRR Pulmonary: No dyspnea Neurological: Alert, answering questions appropriately Skin: Warm, dry. Const: Vital Signs, click to edit/add: Vital Signs - 24 hr 10/10/23 15:00 10/10/23 15:00 10/10/23 15:00 Temperature 98.5 F Pulse Rate [Left R adial] 82 82 Respiratory Rate 18 16 18 Blood Pressure [Le ft Arm] 147/85 H Pulse Oximetry 95 95 Oxygen Delivery Me thod Room Air Room Air 10/10/23 19:00 10/10/23 23:00 10/10/23 23:00 Temperature 98.4 F Pulse Rate [Left R adial] 75 72 Respiratory Rate 18 18 18 Blood Pressure [Le ft Arm] 169/89 H Pulse Oximetry 97 91 Oxygen Delivery Me thod Room Air Room Air 10/10/23 23:00 10/11/23 02:41 10/11/23 09:00 Temperature 98 F 97.9 F Pulse Rate [Left R adial] 72 74 77 Respiratory Rate 18 18 18 Blood Pressure [Le ft Arm] 172/93 H 148/78 H Pulse Oximetry 91 94 Oxygen Delivery Me thod Room Air Room Air 10/11/23 09:00 10/11/23 09:00 10/11/23 11:00 Temperature 97.6 F 98.0 F Pulse Rate [Left R adial] 77 88 Respiratory Rate 18 18 20 Blood Pressure [Le ft Arm] 137/77 158/88 H Pulse Oximetry 94 94 97 Oxygen Delivery Me thod Room Air Room Air Room Air DS: Data Data Completed and Pending Labs on day of discharge: Labs from last 24 hours 10/11/23 06:10 WBC 4.93 RBC 4.83 Hgb 13.5 Hct 41.2 MCV 85 MCH 28 MCHC 33 Plt Count 188 Sodium 139 Potassium 3.5 L Chloride 104 Carbon Dioxide 31 Anion Gap 4 L BUN 13 Creatinine 0.6 Estimated Creat Clear 39.75 Estimated GFR 99 Glucose 91 Calcium 8.5 Discharge Plan Discharge Disposition: [facility] Discharge Location: [facility] Date of Admission: 10/10/23 11:42 Attending Provider on Discharge: Sigrid Gomez Primary Care Provider: Provider,Not a Local Condition: Stable Discharge Orders: Transfer of Care to Other Hospital (ORDER); Ordered 10/11/23 Ordered By: Sigrid Gomez Discharge Comments: Accepting, Dr. Arellano Oxygen: No Urinary Catheter: No Services not available here: Inpatient psychiatry
[2023-10-11] MEDS: LIDOCAINE 5% PATCH 1 PATCH TRANSDERMA (14:55)
--- NOTE | 2023-10-11 15:27 | PC.NURSE ---
Discharge Note: Just arrived on shift and was going to be taking over care of patient but she is transferring to [facility]. EMS([facility]) arrived shortly after I did take patient to [facility]. Went into patient's room she was on her cell phone upon my entering into room. Explain to her that EMS was here to take her to [facility]. She stated They told me 4 pm. I explained to her they are here now so I need to get a set a vitals and get her on to the stretcher for transport. Patient did insist on putting on her own shorts and needed to go to the bathroom. She went into the bathroom and did change into her own shorts. She did empty her pockets of her shorts to show me that she did not have anything on her. She also grab a white belonging bag off the table in the room too. I did inspect the white bag it had her cell phone and cellular plastics cutter for her phone and also placed a bottle of medication that she had also brought with her. She then place a droplet mask on and ambulated out to the EMS stretcher. Once she was seated on stretcher did remove her saline lock also. Report given the [facility] by her previous Nurse Lita.
--- NOTE | 2023-10-11 15:36 | PC.NURSE ---
Nursing Care Hours: [id number] Pt this shift calm and cooperative with intermittent episodes of crying while talking about the events over the past few months leading up to the hospital stay. Pt upset about the drastic change in pain medications, family involvement and conflict in pt life, and mental health. Dt pt making statements of having a plan for suicide and statements of its just not worth it anymore, pt on a strict 1:1 observation. Pt understanding and cooperative. Lidocaine patch placed on R posterior shoulder. Did not have enough of her home Vortioxetine, waiting for sister to bring after work. Heating pad for back, effective. Reported 2 episodes of diarrhea. Tolerating regular diet. VSS.
== END 2023-10-11 15:30 | disposition short-term general hospital (02) | DRG 137 ==
LOC: ED 16:28 → MEDSURG 20:06
PROVIDERS: Hospitalist; Physician Assistant; Admitting Provider Internal Medicine; Emergency Provider Family Medicine; Visit Provider Internal Medicine
DX: U07.1 COVID-19 (principal); A08.39 Other viral enteritis; R45.851 Suicidal ideations; F31.81 Bipolar II disorder; F11.90 Opioid use, unspecified, uncomplicated; R63.0 Anorexia; R11.2 Nausea with vomiting, unspecified; F43.10 Post-traumatic stress disorder, unspecified; F41.9 Anxiety disorder, unspecified; F12.91 Cannabis use, unspecified, in remission; F15.11 Other stimulant abuse, in remission; Z91.51 Personal history of suicidal behavior; F60.9 Personality disorder, unspecified; F17.201 Nicotine dependence, unspecified, in remission; G89.29 Other chronic pain; M54.2 Cervicalgia; M54.9 Dorsalgia, unspecified; R51.9 Headache, unspecified; M25.519 Pain in unspecified shoulder; Z68.22 Body mass index [BMI] 22.0-22.9, adult
CPT/HCPCS: 36415; 80048; 80053; 80143; 80179; 80306; 81001; 82077; 82803; 83605; 83735; 84100; 84443; 85025; 85027; 87086; 87338; 87493; 87631; 99284; 99285; A9270; G0378; J1885; J2405; J2470; J7030; J7050

== ENCOUNTER 2023-10-11 15:10 | Outpatient (CLI) | payer OTHER, SELFPAY | END 2023-10-11 15:11 | disposition home or self-care (01) | LOC: AMB 10-13 00:21 | PROVIDERS: Visit Provider Emergency Medicine | DX: R45.851 Suicidal ideations (principal); F31.81 Bipolar II disorder; U07.1 COVID-19 | CPT/HCPCS: A0425; A0429 ==

== ENCOUNTER 2024-06-18 16:11 | Outpatient (CLI) | payer OTHER, SELFPAY | END 2024-06-18 16:12 | disposition home or self-care (01) | PROVIDERS: Visit Provider Family Medicine | DX: R45.851 Suicidal ideations (principal) | CPT/HCPCS: A0425; A0429 ==